=== PATIENT | female | born 1985 | race Hispanic/Latino ===

== ENCOUNTER 2020-11-25 17:55 | Emergency (ER) | payer SELFPAY ==
[2020-11-25] MEDS ORDERED: Azithromycin 250 MG TAB ONE ×2 (19:03→19:08)
[2020-11-25] MEDS ORDERED: cefTRIAXone\\ROCEPHIN 250 MG VIAL ONE ×2 (19:03→19:05)
[2020-11-25 19:23] LABS: Bilirubin Negative (Negative); Blood, Urine 3+ (Negative); Clarity Clear (Clear); Glucose, Urine (Dipstick) Normal (Negative); Ketone, Urine Negative (Negative); Leukocyte 500 Leu/uL (Negative); Nitrite Negative (Negative); Protein, Urine (Dipstick) Negative (Neg-Trace); Specific Gravity, Urine 1.024 (1.002-1.036); Urobilinogen Normal mg/dL (Less than 2); pH, Urine 6.5 (5.0-9.0)
[2020-11-25 19:24] LABS: Bacteria/HPF 1+ HPF (None Seen)
[2020-11-29 21:59] LABS: Chlamydia by PCR DETECTED (NotDetected); GC by PCR DETECTED (NotDetected)
== END 2020-11-25 19:32 | disposition home or self-care (01) ==
LOC: ERS 17:55
DX: N34.2 Other urethritis (principal)
CPT/HCPCS: 81003; 81015; 87077; 87086; 87186; 87480; 87491; 87510; 87591; 87660; 96372; 99283; J0696

== ENCOUNTER 2021-09-06 08:55 | Emergency (ER) | payer SELFPAY ==
[2021-09-06 11:13] LABS: Bacteria/HPF 4+ HPF (None Seen); Bilirubin Negative (Negative); Blood, Urine 2+ (Negative); Clarity Turbid (Clear); Glucose, Urine (Dipstick) Normal (Negative); Ketone, Urine Negative (Negative); Leukocyte 500 Leu/uL (Negative); Nitrite 1+ (Negative); Protein, Urine (Dipstick) 20 mg/dL (Neg-Trace); Specific Gravity, Urine 1.026 (1.002-1.036); Squamous Epithelial 21-50 HPF (0-3); WBC/HPF 21-50 HPF (0-3)
[2021-09-06 11:14] LABS: Pregnancy Test - Urine (BHCG) Negative (Negative); Pregu Control Background? CLEAR/WHITE (CLR/WHITE); Pregu Control Bar Appear? YES (CONTROL BAR); Specific Gravity 1.026 (1.002-1.036)
[2021-09-06] MEDS ORDERED: Lidocaine 1% (PF) 30 ML VIAL ONE (11:33)
[2021-09-06] MEDS ORDERED: cefTRIAXone\\ROCEPHIN 1 GM VIAL ONE (11:33)
== END 2021-09-06 12:03 | disposition short-term general hospital (02) ==
LOC: ERS 08:55
DX: N10 Acute pyelonephritis (principal); F17.210 Nicotine dependence, cigarettes, uncomplicated
CPT/HCPCS: 81003; 81015; 81025; 96372; 99283; J0696; J2001

== ENCOUNTER 2021-09-11 09:37 | Inpatient (IN) | payer SELFPAY ==
[2021-09-11] MEDS ORDERED: Magnevist 469MG/ML 20 ML VIAL ONE (11:05)
[2021-09-11 12:11] VITALS: BMI 34.4
[2021-09-11] MEDS ORDERED: HYDROcodone/Acetaminophen 5/325 mg Tablet PO PRN (12:17)
[2021-09-11 12:57] LABS: #Eosinphils 0.2 thou/uL (0.0-0.7); #Lymphocytes 2.3 thou/uL (1.20-3.40); #Monocytes 0.5 thou/uL (0.11-0.59); #Neutrophils 4.7 thou/uL (1.40-6.50); %Basophils 0.4 % (0.0-1.0); %Eosinophils 2.6 % (0.0-10.0); %Lymphocytes 29.1 % (21.0-51.0); %Monocytes 6.9 % (0.0-10.0); %Neutrophils 61.1 % (42.0-75.0); Mean Corpuscular Hemoglobin 26.3 pg (27.0-31.0); Mean Corpuscular Volume 82.1 fL (78.0-98.0); Mean Platelet Volume 6.2 fL (7.4-10.4); Platelet Count 379 thou/uL (130-400); RBC Distribution Width 14.5 % (11.5-14.5); Red Blood Cell (RBC) Count 3.82 mill/uL (4.20-5.40); White Blood Cell (WBC) Count 7.8 thou/uL (4.8-10.8)
[2021-09-11 13:02] LABS: Anion Gap 11 mmol/L (10-20); BUN (Urea Nitrogen) 11 mg/dL (7.0-18.7); Calc. Creatinine Clearance 157 mL/min (70-130); Calcium 8.7 mg/dL (7.8-10.44); Carbon Dioxide 30 mmol/L (22-29); Chloride 103 mmol/L (98-107); Glucose 106 mg/dL (70-105); Potassium 3.7 mmol/L (3.5-5.1); Sodium 140 mmol/L (136-145)
[2021-09-11] MEDS ORDERED: cefTRIAXone\\ROCEPHIN 2 GM in Sodium Chloride 0.9% 100 ML IVPB SCH (13:15)
[2021-09-11] MEDS: HYDROcodone/Acetaminophen 5/325 mg Tablet PO PRN ×2 (13:35→17:52)
[2021-09-11] MEDS ORDERED: Vancomycin HCl 1.75 GM in Sodium Chloride 0.9% 500 ML IVPB SCH (14:00)
[2021-09-11] MEDS: Ketorolac Tromethamine 30 MG/ML VIAL IVP PRN ×2 (14:05→20:09)
[2021-09-11 14:13] LABS: Syphilis Antibody Nonreactive (Nonreactive); Syphilis Antibody Index 0.06 S/CO (<1.00 Non-Reactive)
[2021-09-11] MEDS: Ondansetron ODT 4 MG TAB PO PRN (14:20)
[2021-09-11 15:18] LABS: HIV (1/2) Antibody/Antigen Non-Reactive (NonReactive); HIV 1/2 INDEX 0.07 S/CO (<1.00); Hep C IgG Ab Non-Reactive (NonReactive); Hep C Index 0.11 S/CO (0-0.79)
[2021-09-11] MEDS ORDERED: Morphine 4 MG/ML VIAL SLOW IVP SCH (20:00)
[2021-09-11] MEDS: Morphine 4 MG/ML VIAL SLOW IVP PRN (20:08)
[2021-09-11] MEDS ORDERED: Vancomycin 1 GM in Premix Bag 1 BAG IVPB SCH (21:00)
[2021-09-11] MEDS: Cefepime 2 GM in Sodium Chloride 0.9% 100 ML IVPB SCH (21:05)
[2021-09-12] MEDS: Morphine 4 MG/ML VIAL SLOW IVP PRN ×4 (00:06→23:03)
[2021-09-12] MEDS: Vancomycin HCl 1.25 GM in Sodium Chloride 0.9% 250 ML 250 ML IVPB SCH ×2 (01:36→17:25)
[2021-09-12] MEDS: HYDROcodone/Acetaminophen 10/325 mg Tablet PO PRN ×5 (01:37→21:01)
[2021-09-12] MEDS: Bisacodyl 5 MG TAB PO PRN ×2 (01:37→11:16)
[2021-09-12] MEDS: Ketorolac Tromethamine 30 MG/ML VIAL IVP PRN ×3 (02:10→13:53)
[2021-09-12 06:43] LABS: #Eosinphils 0.1 thou/uL (0.0-0.7); #Lymphocytes 1.7 thou/uL (1.20-3.40); #Monocytes 0.6 thou/uL (0.11-0.59); #Neutrophils 6.8 thou/uL (1.40-6.50); %Basophils 0.1 % (0.0-1.0); %Eosinophils 1.6 % (0.0-10.0); %Lymphocytes 18.7 % (21.0-51.0); %Monocytes 6.3 % (0.0-10.0); %Neutrophils 73.3 % (42.0-75.0); Hemoglobin 10.4 g/dL (12.0-16.0); Mean Corpuscular HGB CONC 32.4 g/dL (32.0-36.0); Mean Corpuscular Hemoglobin 26.1 pg (27.0-31.0); Mean Corpuscular Volume 80.6 fL (78.0-98.0); Mean Platelet Volume 6.2 fL (7.4-10.4); Platelet Count 408 thou/uL (130-400); RBC Distribution Width 14.3 % (11.5-14.5); White Blood Cell (WBC) Count 9.3 thou/uL (4.8-10.8)
[2021-09-12 06:57] LABS: Anion Gap 13 mmol/L (10-20); BUN (Urea Nitrogen) 8 mg/dL (7.0-18.7); Calc. Creatinine Clearance 163 mL/min (70-130); Calcium 8.7 mg/dL (7.8-10.44); Carbon Dioxide 27 mmol/L (22-29); Chloride 102 mmol/L (98-107); Glucose 93 mg/dL (70-105); Potassium 4.6 mmol/L (3.5-5.1); Sodium 137 mmol/L (136-145)
[2021-09-12] MEDS: Cefepime 2 GM in Sodium Chloride 0.9% 100 ML IVPB SCH ×2 (08:30→21:12)
[2021-09-12] MEDS: Ondansetron PF 4 MG/2 ML Vial IVP PRN ×2 (08:31→21:07)
[2021-09-12] MEDS: Ondansetron ODT 4 MG TAB PO PRN (12:39)
[2021-09-12] MEDS ORDERED: cefTRIAXone\\ROCEPHIN 2 GM in Sodium Chloride 0.9% 100 ML IVPB SCH (13:00)
[2021-09-12] MEDS ORDERED: FLU VACC QS2021-22(6MOS UP)/PF 60 MCG/0.5 ML SYRINGE IM ONE (13:15)
[2021-09-12] MEDS ORDERED: Temazepam 15 MG CAP PO PRN (15:38)
[2021-09-12] MEDS: Ketorolac Tromethamine 30 MG/ML VIAL IVP SCH ×2 (17:23→22:55)
[2021-09-12] MEDS: Lidocaine 5% Patch TD SCH (17:39)
[2021-09-12] MEDS: Cyclobenzaprine 10 MG TAB PO SCH (20:33)
[2021-09-13 01:35] LABS: Vancomycin, Trough 9.8 ug/mL
[2021-09-13] MEDS: Vancomycin HCl 1.25 GM in Sodium Chloride 0.9% 250 ML 250 ML IVPB SCH (02:23)
[2021-09-13] MEDS: Vancomycin HCl 1.75 GM in Sodium Chloride 0.9% 500 ML IVPB SCH ×2 (03:04→15:25)
[2021-09-13] MEDS: Morphine 4 MG/ML VIAL SLOW IVP PRN ×3 (03:53→12:12)
[2021-09-13] MEDS: Ketorolac Tromethamine 30 MG/ML VIAL IVP SCH ×3 (04:36→17:46)
[2021-09-13] MEDS: Transdermal Patch Removal TOP SCH (04:43)
[2021-09-13] MEDS: HYDROcodone/Acetaminophen 10/325 mg Tablet PO PRN ×4 (06:06→20:20)
[2021-09-13 07:30] LABS: #Eosinphils 0.2 thou/uL (0.0-0.7); #Lymphocytes 1.9 thou/uL (1.20-3.40); #Monocytes 0.6 thou/uL (0.11-0.59); #Neutrophils 5.4 thou/uL (1.40-6.50); %Basophils 0.4 % (0.0-1.0); %Eosinophils 2.1 % (0.0-10.0); %Lymphocytes 23.2 % (21.0-51.0); %Monocytes 7.9 % (0.0-10.0); %Neutrophils 66.4 % (42.0-75.0); Hemoglobin 10.6 g/dL (12.0-16.0); Mean Corpuscular Hemoglobin 26.2 pg (27.0-31.0); Mean Corpuscular Volume 79.5 fL (78.0-98.0); Platelet Count 430 thou/uL (130-400); RBC Distribution Width 14.3 % (11.5-14.5); Red Blood Cell (RBC) Count 4.04 mill/uL (4.20-5.40); White Blood Cell (WBC) Count 8.1 thou/uL (4.8-10.8)
[2021-09-13] MEDS: Cyclobenzaprine 10 MG TAB PO SCH ×3 (07:50→20:21)
[2021-09-13] MEDS: Cefepime 2 GM in Sodium Chloride 0.9% 100 ML IVPB SCH ×2 (07:50→20:21)
[2021-09-13] MEDS: Lidocaine 5% Patch TD SCH (07:51)
[2021-09-13] MEDS: Ondansetron PF 4 MG/2 ML Vial IVP PRN ×2 (08:29→20:21)
[2021-09-13] MEDS: Fentanyl 100 MCG/2 ML VIAL SLOW IVP PRN ×2 (14:28→22:25)
[2021-09-14] MEDS: Ketorolac Tromethamine 30 MG/ML VIAL IVP SCH ×4 (00:11→17:47)
[2021-09-14] MEDS: Vancomycin HCl 1.75 GM in Sodium Chloride 0.9% 500 ML IVPB SCH (03:38)
[2021-09-14] MEDS: Ondansetron PF 4 MG/2 ML Vial IVP PRN ×2 (03:38→13:51)
[2021-09-14] MEDS: HYDROcodone/Acetaminophen 10/325 mg Tablet PO PRN ×3 (03:38→20:04)
[2021-09-14] MEDS: Transdermal Patch Removal TOP SCH (04:00)
[2021-09-14 07:39] LABS: #Eosinphils 0.3 thou/uL (0.0-0.7); #Lymphocytes 2.4 thou/uL (1.20-3.40); #Monocytes 0.7 thou/uL (0.11-0.59); #Neutrophils 5.8 thou/uL (1.40-6.50); %Basophils 0.2 % (0.0-1.0); %Eosinophils 2.9 % (0.0-10.0); %Lymphocytes 26.1 % (21.0-51.0); %Monocytes 7.9 % (0.0-10.0); %Neutrophils 62.9 % (42.0-75.0); Hemoglobin 10.7 g/dL (12.0-16.0); Mean Corpuscular HGB CONC 32.5 g/dL (32.0-36.0); Mean Corpuscular Hemoglobin 25.9 pg (27.0-31.0); Mean Corpuscular Volume 79.6 fL (78.0-98.0); Mean Platelet Volume 5.9 fL (7.4-10.4); Platelet Count 463 thou/uL (130-400); RBC Distribution Width 14.3 % (11.5-14.5); Red Blood Cell (RBC) Count 4.15 mill/uL (4.20-5.40); White Blood Cell (WBC) Count 9.1 thou/uL (4.8-10.8)
[2021-09-14] MEDS: Cefepime 2 GM in Sodium Chloride 0.9% 100 ML IVPB SCH (08:28)
[2021-09-14] MEDS: Lidocaine 5% Patch TD SCH (08:28)
[2021-09-14] MEDS: Fentanyl 100 MCG/2 ML VIAL SLOW IVP PRN ×4 (08:28→21:30)
[2021-09-14] MEDS: Cyclobenzaprine 10 MG TAB PO SCH ×3 (10:06→20:04)
[2021-09-14] MEDS: Clindamycin 150 MG CAP PO SCH ×2 (13:52→21:10)
[2021-09-14] MEDS: Bisacodyl 5 MG TAB PO PRN (13:52)
[2021-09-14 15:04] LABS: Vancomycin, Trough 6.1 ug/mL
[2021-09-15] MEDS: Fentanyl 100 MCG/2 ML VIAL SLOW IVP PRN ×4 (04:43→19:40)
[2021-09-15] MEDS: Transdermal Patch Removal TOP SCH (04:43)
[2021-09-15] MEDS: Clindamycin 150 MG CAP PO SCH ×3 (05:39→21:35)
[2021-09-15] MEDS: Ketorolac Tromethamine 30 MG/ML VIAL IVP SCH ×4 (06:01→17:21)
[2021-09-15] MEDS: Bisacodyl 5 MG TAB PO PRN (08:49)
[2021-09-15] MEDS: Lidocaine 5% Patch TD SCH (08:50)
[2021-09-15] MEDS: Cyclobenzaprine 10 MG TAB PO SCH ×3 (08:51→20:06)
[2021-09-15] MEDS: Ondansetron PF 4 MG/2 ML Vial IVP PRN ×2 (08:52→16:04)
[2021-09-15 09:38] LABS: Anion Gap 13 mmol/L (10-20); BUN (Urea Nitrogen) 21 mg/dL (7.0-18.7); Calc. Creatinine Clearance 130 mL/min (70-130); Calcium 9.1 mg/dL (7.8-10.44); Carbon Dioxide 31 mmol/L (22-29); Chloride 97 mmol/L (98-107); Glucose 99 mg/dL (70-105); Potassium 4.4 mmol/L (3.5-5.1); Sodium 137 mmol/L (136-145)
[2021-09-15] MEDS: HYDROcodone/Acetaminophen 10/325 mg Tablet PO PRN ×2 (16:01→21:35)
[2021-09-16] MEDS: Ketorolac Tromethamine 30 MG/ML VIAL IVP SCH ×3 (00:11→11:17)
[2021-09-16] MEDS: Fentanyl 100 MCG/2 ML VIAL SLOW IVP PRN (01:20)
[2021-09-16] MEDS: Clindamycin 150 MG CAP PO SCH (05:33)
[2021-09-16] MEDS: Transdermal Patch Removal TOP SCH (05:33)
[2021-09-16] MEDS: HYDROcodone/Acetaminophen 10/325 mg Tablet PO PRN (07:35)
[2021-09-16] MEDS: Cyclobenzaprine 10 MG TAB PO SCH (09:01)
[2021-09-16] MEDS: Ondansetron PF 4 MG/2 ML Vial IVP PRN (09:06)
[2021-09-16] MEDS: Lidocaine 5% Patch TD SCH (09:06)
[2021-09-16 11:57] VITALS: BP 138/84; TEMP 97.7
== END 2021-09-16 13:11 | disposition home or self-care (01) | DRG 540 ==
LOC: MRI 09:37 → 2NO 12:00 → T4-B 12:09 → UNDOADMIN 12:09 → UNDODISIN 09-16 13:11
PROVIDERS: ADMIT Family Medicine; ATTEND Family Medicine
DX: M46.27 Osteomyelitis of vertebra, lumbosacral region (principal); N39.0 Urinary tract infection, site not specified; M46.47 Discitis, unspecified, lumbosacral region; F15.10 Other stimulant abuse, uncomplicated; B96.20 Unspecified Escherichia coli [E. coli] as the cause of diseases classified elsewhere; F17.210 Nicotine dependence, cigarettes, uncomplicated; Z87.440 Personal history of urinary (tract) infections; Z71.6 Tobacco abuse counseling; Z71.51 Drug abuse counseling and surveillance of drug abuser
CPT/HCPCS: 36415; 72158; 80048; 80202; 85025; 86140; 86780; 86803; 87389; A9579; J0692; J0696; J1885; J2270; J2405; J3010; J3370; J3490; J7030; J7050; Q0162

== ENCOUNTER 2021-10-02 23:42 | Inpatient (IN) | payer SELFPAY ==
[2021-10-03 00:46] VITALS: BMI 28.7
[2021-10-03] MEDS ORDERED: Morphine 4 MG/ML VIAL SLOW IVP SCH (01:30)
[2021-10-03] MEDS ORDERED: HYDROcodone/Acetaminophen 5/325 mg Tablet PO SCH (03:00)
[2021-10-03] MEDS ORDERED: Ketorolac Tromethamine 30 MG/ML VIAL IVP SCH (04:45)
[2021-10-03] MEDS ORDERED: Ondansetron ODT 4 MG TAB PO PRN (04:50)
[2021-10-03] MEDS ORDERED: Acetaminophen 650 MG Suppository PR PRN (04:50)
[2021-10-03] MEDS ORDERED: Ketorolac Tromethamine 30 MG/ML VIAL IVP PRN (04:52)
[2021-10-03] MEDS ORDERED: Piperacillin/Tazobactam 3.375 GM in Sodium Chloride 0.9% 100 ML IVPB SCH ×2 (05:15→09:00)
[2021-10-03] MEDS: Sodium Chloride 0.9% 1,000 ML IV SCH ×2 (05:26→18:16)
[2021-10-03] MEDS: Enoxaparin Sodium 40 MG/0.4 ML SYRINGE SC SCH (07:56)
[2021-10-03] MEDS: Acetaminophen 325 MG TAB PO PRN (07:56)
[2021-10-03] MEDS: Ondansetron PF 4 MG/2 ML Vial IVP PRN ×2 (07:56→16:13)
[2021-10-03] MEDS ORDERED: Vancomycin 1.5 GRAM/300 ML BAG 1.5 GM in Premix Bag 1 BAG IVPB SCH (08:00)
[2021-10-03] MEDS: Vancomycin HCl 750 MG in Sodium Chloride 0.9% 250 ML 250 ML IVPB SCH ×2 (08:13→20:22)
[2021-10-03 08:30] LABS: Anion Gap 14 mmol/L (10-20); BUN (Urea Nitrogen) 12 mg/dL (7.0-18.7); Calc. Creatinine Clearance 122 mL/min (70-130); Calcium 8.3 mg/dL (7.8-10.44); Carbon Dioxide 21 mmol/L (22-29); Chloride 105 mmol/L (98-107); Glucose 107 mg/dL (70-105); Potassium 3.8 mmol/L (3.5-5.1); Sodium 136 mmol/L (136-145)
[2021-10-03 08:31] LABS: Hemoglobin 11.1 g/dL (12.0-16.0); Mean Corpuscular HGB CONC 32.3 g/dL (32.0-36.0); Mean Corpuscular Volume 77.4 fL (78.0-98.0); Mean Platelet Volume 7.8 fL (7.4-10.4); Platelet Count 228 thou/uL (130-400); RBC Distribution Width 14.9 % (11.5-14.5); Red Blood Cell (RBC) Count 4.44 mill/uL (4.20-5.40); White Blood Cell (WBC) Count 6.3 thou/uL (4.8-10.8)
[2021-10-03] MEDS ORDERED: Morphine 4 MG/ML VIAL SLOW IVP PRN (08:41)
[2021-10-03] MEDS ORDERED: FLU VACC QS2021-22(6MOS UP)/PF 60 MCG/0.5 ML SYRINGE IM ONE (09:00)
[2021-10-03] MEDS: Lidocaine 5% Patch TD SCH (09:21)
[2021-10-03] MEDS: Senokot S 8.6-50 MG TAB PO SCH ×2 (09:21→20:20)
[2021-10-03] MEDS: Saccharomyces boulardii 250 MG CAP PO SCH (09:21)
[2021-10-03 10:14] LABS: Eosinophils 5 % (0-10); Lymphocytes 36 % (21-51); MDiff Complete? YES; Microcytosis SLIGHT = 6-15 cells (100X) (0-5/hpf); Monocytes 8 % (0-10); Neutrophil 50 % (42-75); Platelet Morphology Comment Appears Adequate; Polychromasia SLIGHT = 2-3 cells (100X) (0-2/hpf); Reactive Lymphocytes 1 % (0-10)
[2021-10-03] MEDS ORDERED: Heparin 1,000 UNITS/ML VIAL ONE (11:28)
[2021-10-03] MEDS: HYDROcodone/Acetaminophen 10/325 mg Tablet PO PRN ×2 (11:42→20:20)
[2021-10-03] MEDS: Cefepime 2 GM in Sodium Chloride 0.9% 100 ML IVPB SCH (12:41)
[2021-10-03] MEDS: Ketorolac Tromethamine 30 MG/ML VIAL IVP PRN ×2 (16:02→21:20)
[2021-10-03] MEDS: Polyethylene Glycol 3350 17 GM Packet PO SCH (20:22)
[2021-10-03] MEDS: Transdermal Patch Removal TOP SCH (21:48)
[2021-10-04] MEDS: Cefepime 2 GM in Sodium Chloride 0.9% 100 ML IVPB SCH ×2 (01:01→12:14)
[2021-10-04] MEDS: HYDROcodone/Acetaminophen 10/325 mg Tablet PO PRN ×3 (01:50→15:56)
[2021-10-04] MEDS: Ketorolac Tromethamine 30 MG/ML VIAL IVP PRN ×3 (03:18→20:52)
[2021-10-04 06:46] LABS: #Basophils 0.1 thou/uL (0.0-0.2); #Eosinphils 0.2 thou/uL (0.0-0.7); #Monocytes 0.4 thou/uL (0.11-0.59); #Neutrophils 3.3 thou/uL (1.40-6.50); %Basophils 0.9 % (0.0-1.0); %Eosinophils 3.6 % (0.0-10.0); %Lymphocytes 33.7 % (21.0-51.0); %Monocytes 6.7 % (0.0-10.0); %Neutrophils 55.1 % (42.0-75.0); Hemoglobin 11.4 g/dL (12.0-16.0); Mean Corpuscular HGB CONC 32.3 g/dL (32.0-36.0); Mean Corpuscular Hemoglobin 25.4 pg (27.0-31.0); Mean Corpuscular Volume 78.6 fL (78.0-98.0); Mean Platelet Volume 6.5 fL (7.4-10.4); Platelet Count 305 thou/uL (130-400); RBC Distribution Width 14.8 % (11.5-14.5)
[2021-10-04 07:10] LABS: Anion Gap 11 mmol/L (10-20); BUN (Urea Nitrogen) 10 mg/dL (7.0-18.7); Calc. Creatinine Clearance 138 mL/min (70-130); Calcium 8.8 mg/dL (7.8-10.44); Carbon Dioxide 25 mmol/L (22-29); Chloride 104 mmol/L (98-107); Glucose 94 mg/dL (70-105); Potassium 4.3 mmol/L (3.5-5.1); Sodium 136 mmol/L (136-145)
[2021-10-04] MEDS: Morphine 4 MG/ML VIAL SLOW IVP PRN ×2 (07:59→14:06)
[2021-10-04] MEDS: Saccharomyces boulardii 250 MG CAP PO SCH (08:00)
[2021-10-04] MEDS: Senokot S 8.6-50 MG TAB PO SCH ×2 (08:00→20:34)
[2021-10-04] MEDS: Lidocaine 5% Patch TD SCH (08:00)
[2021-10-04] MEDS: Enoxaparin Sodium 40 MG/0.4 ML SYRINGE SC SCH (08:01)
[2021-10-04] MEDS: Vancomycin HCl 750 MG in Sodium Chloride 0.9% 250 ML 250 ML IVPB SCH ×2 (08:01→20:32)
[2021-10-04] MEDS: Sodium Chloride 0.9% 1,000 ML IV SCH ×2 (08:01→15:58)
[2021-10-04] MEDS ORDERED: Gabapentin 300 MG CAP PO SCH (15:30)
[2021-10-04] MEDS ORDERED: Lidocaine 5% Patch TD SCH (15:30)
[2021-10-04 17:26] LABS: BHCG - Serum Negative (NEGATIVE); Pregs Control Background? CLEAR/WHITE (CLR/WHITE); Pregs Control Bar Appear? YES (CONTROL BAR)
[2021-10-04 19:30] LABS: Vancomycin, Trough 3.6 ug/mL
[2021-10-04] MEDS: Gabapentin 300 MG CAP PO SCH (20:32)
[2021-10-04] MEDS: Polyethylene Glycol 3350 17 GM Packet PO SCH (20:32)
[2021-10-04] MEDS: Folic Acid 1 MG TAB PO SCH (20:34)
[2021-10-04] MEDS: Multivit, Therapeutic 1 TAB PO SCH (20:35)
[2021-10-04] MEDS: Cyanocobalamin (Vitamin B-12) 1,000 MCG TAB PO SCH (20:35)
[2021-10-04] MEDS: Transdermal Patch Removal TOP SCH (21:00)
[2021-10-05] MEDS: HYDROcodone/Acetaminophen 10/325 mg Tablet PO PRN ×4 (00:48→23:51)
[2021-10-05] MEDS: Cefepime 2 GM in Sodium Chloride 0.9% 100 ML IVPB SCH ×2 (00:49→12:47)
[2021-10-05] MEDS: Vancomycin 1 GM in Premix Bag 1 BAG IVPB SCH ×3 (02:01→17:07)
[2021-10-05] MEDS: Ketorolac Tromethamine 30 MG/ML VIAL IVP PRN ×3 (03:02→19:37)
[2021-10-05] MEDS: Ondansetron PF 4 MG/2 ML Vial IVP PRN ×3 (03:18→23:57)
[2021-10-05] MEDS: Morphine 4 MG/ML VIAL SLOW IVP PRN ×3 (07:52→21:42)
[2021-10-05] MEDS: Senokot S 8.6-50 MG TAB PO SCH ×2 (07:58→20:50)
[2021-10-05] MEDS: Gabapentin 300 MG CAP PO SCH ×2 (07:58→20:24)
[2021-10-05] MEDS: Saccharomyces boulardii 250 MG CAP PO SCH (07:59)
[2021-10-05] MEDS: Enoxaparin Sodium 40 MG/0.4 ML SYRINGE SC SCH (08:00)
[2021-10-05] MEDS: Lidocaine 5% Patch TD SCH (08:00)
[2021-10-05] MEDS: Cyclobenzaprine 10 MG TAB PO PRN ×3 (08:05→21:42)
[2021-10-05] MEDS: Sodium Chloride 0.9% 1,000 ML IV SCH (12:47)
[2021-10-05] MEDS: Multivit, Therapeutic 1 TAB PO SCH (20:24)
[2021-10-05] MEDS: Cyanocobalamin (Vitamin B-12) 1,000 MCG TAB PO SCH (20:25)
[2021-10-05] MEDS: Folic Acid 1 MG TAB PO SCH (20:25)
[2021-10-05] MEDS: Polyethylene Glycol 3350 17 GM Packet PO SCH (20:49)
[2021-10-05] MEDS: Transdermal Patch Removal TOP SCH (21:52)
[2021-10-06] MEDS: Cefepime 2 GM in Sodium Chloride 0.9% 100 ML IVPB SCH ×2 (00:54→12:52)
[2021-10-06 01:47] LABS: Vancomycin, Trough 12.3 ug/mL
[2021-10-06] MEDS: Ketorolac Tromethamine 30 MG/ML VIAL IVP PRN ×3 (02:07→17:44)
[2021-10-06] MEDS: Vancomycin HCl 1.25 GM in Sodium Chloride 0.9% 250 ML 250 ML IVPB SCH ×3 (02:29→17:44)
[2021-10-06] MEDS: Vancomycin 1 GM in Premix Bag 1 BAG IVPB SCH (02:34)
[2021-10-06] MEDS: Morphine 4 MG/ML VIAL SLOW IVP PRN ×5 (03:14→23:06)
[2021-10-06] MEDS: HYDROcodone/Acetaminophen 10/325 mg Tablet PO PRN ×3 (06:16→21:07)
[2021-10-06 07:34] LABS: #Eosinphils 0.2 thou/uL (0.0-0.7); #Lymphocytes 1.9 thou/uL (1.20-3.40); #Monocytes 0.5 thou/uL (0.11-0.59); #Neutrophils 3.3 thou/uL (1.40-6.50); %Basophils 0.6 % (0.0-1.0); %Eosinophils 3.7 % (0.0-10.0); %Lymphocytes 31.6 % (21.0-51.0); %Monocytes 7.9 % (0.0-10.0); %Neutrophils 56.2 % (42.0-75.0); Hemoglobin 11.1 g/dL (12.0-16.0); Mean Corpuscular HGB CONC 32.3 g/dL (32.0-36.0); Mean Corpuscular Hemoglobin 25.2 pg (27.0-31.0); Mean Corpuscular Volume 77.8 fL (78.0-98.0); Mean Platelet Volume 6.9 fL (7.4-10.4); Platelet Count 272 thou/uL (130-400); RBC Distribution Width 14.7 % (11.5-14.5); Red Blood Cell (RBC) Count 4.39 mill/uL (4.20-5.40); White Blood Cell (WBC) Count 5.9 thou/uL (4.8-10.8)
[2021-10-06 07:50] LABS: Anion Gap 11 mmol/L (10-20); BUN (Urea Nitrogen) 16 mg/dL (7.0-18.7); Calc. Creatinine Clearance 131 mL/min (70-130); Carbon Dioxide 29 mmol/L (22-29); Chloride 102 mmol/L (98-107); Glucose 105 mg/dL (70-105); Potassium 4.1 mmol/L (3.5-5.1); Sodium 138 mmol/L (136-145)
[2021-10-06] MEDS: Enoxaparin Sodium 40 MG/0.4 ML SYRINGE SC SCH (08:22)
[2021-10-06] MEDS: Gabapentin 300 MG CAP PO SCH ×4 (08:23→21:09)
[2021-10-06] MEDS: Senokot S 8.6-50 MG TAB PO SCH ×2 (08:24→21:10)
[2021-10-06] MEDS: Saccharomyces boulardii 250 MG CAP PO SCH (08:24)
[2021-10-06] MEDS: Lidocaine 5% Patch TD SCH (08:40)
[2021-10-06] MEDS: Sodium Chloride 0.9% 1,000 ML IV SCH ×2 (08:41→12:42)
[2021-10-06] MEDS: Cyclobenzaprine 10 MG TAB PO PRN (10:47)
[2021-10-06] MEDS: Ondansetron PF 4 MG/2 ML Vial IVP PRN ×2 (17:40→23:06)
[2021-10-06] MEDS: Cyanocobalamin (Vitamin B-12) 1,000 MCG TAB PO SCH (21:07)
[2021-10-06] MEDS: Multivit, Therapeutic 1 TAB PO SCH (21:07)
[2021-10-06] MEDS: Folic Acid 1 MG TAB PO SCH (21:08)
[2021-10-06] MEDS: Polyethylene Glycol 3350 17 GM Packet PO SCH (21:10)
[2021-10-06] MEDS: Transdermal Patch Removal TOP SCH (21:11)
[2021-10-07] MEDS: Cefepime 2 GM in Sodium Chloride 0.9% 100 ML IVPB SCH ×2 (00:52→11:59)
[2021-10-07 01:16] LABS: Vancomycin, Trough 17.9 ug/mL
[2021-10-07] MEDS: HYDROcodone/Acetaminophen 10/325 mg Tablet PO PRN ×5 (01:32→20:15)
[2021-10-07] MEDS: Ketorolac Tromethamine 30 MG/ML VIAL IVP PRN ×3 (01:35→20:17)
[2021-10-07] MEDS: Vancomycin HCl 1.25 GM in Sodium Chloride 0.9% 250 ML 250 ML IVPB SCH ×3 (03:30→18:03)
[2021-10-07] MEDS: Morphine 4 MG/ML VIAL SLOW IVP PRN ×4 (05:14→22:29)
[2021-10-07] MEDS: Lidocaine 5% Patch TD SCH (09:01)
[2021-10-07] MEDS: Senokot S 8.6-50 MG TAB PO SCH ×3 (09:01→20:47)
[2021-10-07] MEDS: Enoxaparin Sodium 40 MG/0.4 ML SYRINGE SC SCH (09:01)
[2021-10-07] MEDS: Saccharomyces boulardii 250 MG CAP PO SCH (09:01)
[2021-10-07] MEDS: Gabapentin 300 MG CAP PO SCH ×4 (09:02→20:15)
[2021-10-07] MEDS: Ondansetron PF 4 MG/2 ML Vial IVP PRN ×3 (09:06→22:29)
[2021-10-07] MEDS: Sodium Chloride 0.9% 1,000 ML IV SCH (12:00)
[2021-10-07 13:33] LABS: Bacteria/HPF None Seen HPF (None Seen); Bilirubin Negative (Negative); Blood, Urine 1+ (Negative); Clarity Clear (Clear); Glucose, Urine (Dipstick) Normal (Negative); Ketone, Urine Negative (Negative); Leukocyte Negative Leu/uL (Negative); Nitrite Negative (Negative); Protein, Urine (Dipstick) Negative (Neg-Trace); RBC/HPF 0-3 HPF (0-3); Specific Gravity, Urine 1.007 (1.002-1.036); Squamous Epithelial 0-3 HPF (0-3); Urobilinogen Normal mg/dL (Less than 2); WBC/HPF 0-3 HPF (0-3)
[2021-10-07 13:35] LABS: Urine Culture Reflex No No
[2021-10-07] MEDS: Folic Acid 1 MG TAB PO SCH (20:15)
[2021-10-07] MEDS: Cyanocobalamin (Vitamin B-12) 1,000 MCG TAB PO SCH (20:15)
[2021-10-07] MEDS: Multivit, Therapeutic 1 TAB PO SCH (20:15)
[2021-10-07] MEDS: Polyethylene Glycol 3350 17 GM Packet PO SCH (20:18)
[2021-10-07] MEDS: Transdermal Patch Removal TOP SCH (20:21)
[2021-10-08] MEDS: Acetaminophen 325 MG TAB PO PRN ×2 (00:46→07:36)
[2021-10-08] MEDS: Cefepime 2 GM in Sodium Chloride 0.9% 100 ML IVPB SCH ×2 (01:00→11:22)
[2021-10-08 01:34] LABS: Vancomycin, Trough 21.3 ug/mL
[2021-10-08] MEDS: Ketorolac Tromethamine 30 MG/ML VIAL IVP PRN (03:04)
[2021-10-08] MEDS: Vancomycin 1 GM in Premix Bag 1 BAG IVPB SCH ×3 (03:04→16:45)
[2021-10-08] MEDS ORDERED: traMADol HCl 50 MG TAB PO SCH (05:45)
[2021-10-08] MEDS: Ondansetron PF 4 MG/2 ML Vial IVP PRN (05:49)
[2021-10-08] MEDS: Enoxaparin Sodium 40 MG/0.4 ML SYRINGE SC SCH (07:35)
[2021-10-08] MEDS: Senokot S 8.6-50 MG TAB PO SCH ×2 (07:36→19:33)
[2021-10-08] MEDS: Gabapentin 300 MG CAP PO SCH ×4 (07:36→21:06)
[2021-10-08] MEDS: Saccharomyces boulardii 250 MG CAP PO SCH (07:37)
[2021-10-08] MEDS: Lidocaine 5% Patch TD SCH (07:40)
[2021-10-08] MEDS ORDERED: HYDROcodone/Acetaminophen 10/325 mg Tablet PO PRN (08:26)
[2021-10-08] MEDS ORDERED: Morphine 2 MG/ML VIAL SLOW IVP PRN (08:28)
[2021-10-08] MEDS ORDERED: Ketorolac Tromethamine 30 MG/ML VIAL IVP SCH (08:30)
[2021-10-08] MEDS: HYDROcodone/Acetaminophen 10/325 mg Tablet PO PRN ×3 (09:51→21:07)
[2021-10-08] MEDS: Sodium Chloride 0.9% 1,000 ML IV SCH (09:52)
[2021-10-08] MEDS: Ketorolac Tromethamine 30 MG/ML VIAL IVP SCH ×3 (11:22→23:10)
[2021-10-08] MEDS: Acetaminophen/Codeine 30-300mg Tablet PO PRN ×2 (13:03→17:57)
[2021-10-08] MEDS: Morphine 4 MG/ML VIAL SLOW IVP PRN ×3 (15:08→23:33)
[2021-10-08] MEDS: Polyethylene Glycol 3350 17 GM Packet PO SCH (19:33)
[2021-10-08] MEDS: Folic Acid 1 MG TAB PO SCH (21:06)
[2021-10-08] MEDS: Cyanocobalamin (Vitamin B-12) 1,000 MCG TAB PO SCH (21:06)
[2021-10-08] MEDS: Multivit, Therapeutic 1 TAB PO SCH (21:06)
[2021-10-08] MEDS: Transdermal Patch Removal TOP SCH (22:42)
[2021-10-09] MEDS: Acetaminophen/Codeine 30-300mg Tablet PO PRN ×5 (00:50→22:16)
[2021-10-09] MEDS: Cefepime 2 GM in Sodium Chloride 0.9% 100 ML IVPB SCH ×2 (00:52→11:23)
[2021-10-09 01:16] LABS: Vancomycin, Trough 15.3 ug/mL
[2021-10-09] MEDS: Vancomycin 1 GM in Premix Bag 1 BAG IVPB SCH ×3 (02:16→16:13)
[2021-10-09] MEDS: Morphine 4 MG/ML VIAL SLOW IVP PRN ×5 (03:24→20:06)
[2021-10-09] MEDS ORDERED: Lidocaine 5% Patch TD SCH ×2 (05:00→12:00)
[2021-10-09] MEDS: Ketorolac Tromethamine 30 MG/ML VIAL IVP SCH ×2 (05:14→11:15)
[2021-10-09] MEDS: Enoxaparin Sodium 40 MG/0.4 ML SYRINGE SC SCH (07:37)
[2021-10-09] MEDS: Gabapentin 300 MG CAP PO SCH ×4 (07:37→20:05)
[2021-10-09] MEDS: Saccharomyces boulardii 250 MG CAP PO SCH (07:37)
[2021-10-09] MEDS: Senokot S 8.6-50 MG TAB PO SCH ×2 (07:38→20:15)
[2021-10-09] MEDS: Sodium Chloride 0.9% 1,000 ML IV SCH (11:15)
[2021-10-09] MEDS ORDERED: Ibuprofen 800 MG TAB PO SCH (11:45)
[2021-10-09] MEDS: Ondansetron PF 4 MG/2 ML Vial IVP PRN (14:21)
[2021-10-09] MEDS ORDERED: Transdermal Patch Removal TOP SCH ×2 (17:00)
[2021-10-09] MEDS: Ibuprofen 800 MG TAB PO SCH (18:47)
[2021-10-09] MEDS: Cyanocobalamin (Vitamin B-12) 1,000 MCG TAB PO SCH (20:05)
[2021-10-09] MEDS: Folic Acid 1 MG TAB PO SCH (20:05)
[2021-10-09] MEDS: Multivit, Therapeutic 1 TAB PO SCH (20:05)
[2021-10-09] MEDS: Polyethylene Glycol 3350 17 GM Packet PO SCH (20:15)
[2021-10-10] MEDS: Morphine 4 MG/ML VIAL SLOW IVP PRN ×5 (00:06→20:10)
[2021-10-10] MEDS: Acetaminophen 325 MG TAB PO PRN (00:07)
[2021-10-10] MEDS: Cefepime 2 GM in Sodium Chloride 0.9% 100 ML IVPB SCH ×2 (00:08→13:04)
[2021-10-10 01:47] LABS: Vancomycin, Trough 11.1 ug/mL
[2021-10-10] MEDS: Vancomycin 1 GM in Premix Bag 1 BAG IVPB SCH (02:06)
[2021-10-10] MEDS: Vancomycin HCl 1.25 GM in Sodium Chloride 0.9% 250 ML 250 ML IVPB SCH ×3 (02:08→16:49)
[2021-10-10] MEDS: Acetaminophen/Codeine 30-300mg Tablet PO PRN ×5 (02:34→21:57)
[2021-10-10] MEDS: Ondansetron PF 4 MG/2 ML Vial IVP PRN (02:39)
[2021-10-10] MEDS: Ibuprofen 800 MG TAB PO SCH ×3 (04:08→20:12)
[2021-10-10] MEDS: Lidocaine 5% Patch TD SCH (07:04)
[2021-10-10] MEDS: Saccharomyces boulardii 250 MG CAP PO SCH (08:20)
[2021-10-10] MEDS: Enoxaparin Sodium 40 MG/0.4 ML SYRINGE SC SCH (08:20)
[2021-10-10] MEDS: Gabapentin 300 MG CAP PO SCH ×4 (08:20→20:12)
[2021-10-10] MEDS: Senokot S 8.6-50 MG TAB PO SCH ×2 (08:20→20:23)
[2021-10-10] MEDS: Sodium Chloride 0.9% 1,000 ML IV SCH ×2 (10:48→11:06)
[2021-10-10] MEDS ORDERED: Lorazepam 2 MG/ML VIAL SLOW IVP SCH (11:30)
[2021-10-10] MEDS: Transdermal Patch Removal TOP SCH (16:49)
[2021-10-10] MEDS: Cyanocobalamin (Vitamin B-12) 1,000 MCG TAB PO SCH (20:12)
[2021-10-10] MEDS: Multivit, Therapeutic 1 TAB PO SCH (20:12)
[2021-10-10] MEDS: Folic Acid 1 MG TAB PO SCH (20:13)
[2021-10-10] MEDS: Polyethylene Glycol 3350 17 GM Packet PO SCH (20:22)
[2021-10-11] MEDS: Cefepime 2 GM in Sodium Chloride 0.9% 100 ML IVPB SCH ×2 (00:58→13:07)
[2021-10-11] MEDS: Morphine 4 MG/ML VIAL SLOW IVP PRN ×4 (00:58→23:53)
[2021-10-11] MEDS: Ondansetron PF 4 MG/2 ML Vial IVP PRN ×3 (01:14→23:53)
[2021-10-11 01:31] LABS: Vancomycin, Trough 14.1 ug/mL
[2021-10-11] MEDS: Vancomycin HCl 1.25 GM in Sodium Chloride 0.9% 250 ML 250 ML IVPB SCH ×3 (02:45→17:47)
[2021-10-11] MEDS: Lidocaine 5% Patch TD SCH (04:23)
[2021-10-11] MEDS: Acetaminophen/Codeine 30-300mg Tablet PO PRN ×4 (04:25→20:12)
[2021-10-11] MEDS: Ibuprofen 800 MG TAB PO SCH ×3 (04:29→20:36)
[2021-10-11] MEDS: Saccharomyces boulardii 250 MG CAP PO SCH (10:28)
[2021-10-11] MEDS: Gabapentin 300 MG CAP PO SCH ×4 (10:28→20:14)
[2021-10-11] MEDS: Enoxaparin Sodium 40 MG/0.4 ML SYRINGE SC SCH (10:28)
[2021-10-11] MEDS: Senokot S 8.6-50 MG TAB PO SCH ×2 (10:33→20:01)
[2021-10-11] MEDS ORDERED: Fentanyl 100 MCG/2 ML VIAL SLOW IVP SCH (12:00)
[2021-10-11] MEDS ORDERED: ALPRAZolam 0.5 MG TAB PO SCH (12:00)
[2021-10-11] MEDS: Sodium Chloride 0.9% 1,000 ML IV SCH (15:13)
[2021-10-11] MEDS: Transdermal Patch Removal TOP SCH (17:53)
[2021-10-11] MEDS: Polyethylene Glycol 3350 17 GM Packet PO SCH (20:01)
[2021-10-11] MEDS: Multivit, Therapeutic 1 TAB PO SCH (20:15)
[2021-10-11] MEDS: Cyanocobalamin (Vitamin B-12) 1,000 MCG TAB PO SCH (20:15)
[2021-10-11] MEDS: ALPRAZolam 0.5 MG TAB PO SCH (20:16)
[2021-10-11] MEDS: Folic Acid 1 MG TAB PO SCH (20:16)
[2021-10-12] MEDS: Cefepime 2 GM in Sodium Chloride 0.9% 100 ML IVPB SCH ×2 (01:03→13:00)
[2021-10-12] MEDS: Acetaminophen/Codeine 30-300mg Tablet PO PRN ×6 (01:38→23:57)
[2021-10-12 02:13] LABS: Vancomycin, Trough 15.4 ug/mL
[2021-10-12] MEDS: Vancomycin HCl 1.25 GM in Sodium Chloride 0.9% 250 ML 250 ML IVPB SCH ×2 (03:02→10:22)
[2021-10-12] MEDS: Ibuprofen 800 MG TAB PO SCH ×3 (03:47→21:42)
[2021-10-12] MEDS: Morphine 4 MG/ML VIAL SLOW IVP PRN ×5 (03:48→22:45)
[2021-10-12] MEDS: Lidocaine 5% Patch TD SCH ×2 (04:38→09:05)
[2021-10-12] MEDS: Gabapentin 300 MG CAP PO SCH ×4 (07:59→20:07)
[2021-10-12] MEDS: ALPRAZolam 0.5 MG TAB PO SCH ×2 (07:59→20:07)
[2021-10-12] MEDS: Saccharomyces boulardii 250 MG CAP PO SCH (07:59)
[2021-10-12] MEDS: Enoxaparin Sodium 40 MG/0.4 ML SYRINGE SC SCH (08:00)
[2021-10-12] MEDS: Senokot S 8.6-50 MG TAB PO SCH ×2 (08:00→21:45)
[2021-10-12] MEDS: Ondansetron PF 4 MG/2 ML Vial IVP PRN ×2 (13:01→21:13)
[2021-10-12] MEDS: Sodium Chloride 0.9% 1,000 ML IV SCH (13:55)
[2021-10-12] MEDS: DAPTOmycin 500 MG in Sodium Chloride 0.9% 100 ML IVPB SCH (16:43)
[2021-10-12] MEDS: Transdermal Patch Removal TOP SCH (17:47)
[2021-10-12] MEDS: Cyanocobalamin (Vitamin B-12) 1,000 MCG TAB PO SCH (20:05)
[2021-10-12] MEDS: Multivit, Therapeutic 1 TAB PO SCH (20:05)
[2021-10-12] MEDS: Folic Acid 1 MG TAB PO SCH (20:07)
[2021-10-12] MEDS: Polyethylene Glycol 3350 17 GM Packet PO SCH (21:43)
[2021-10-13] MEDS: Cefepime 2 GM in Sodium Chloride 0.9% 100 ML IVPB SCH ×2 (00:43→13:26)
[2021-10-13] MEDS: Morphine 4 MG/ML VIAL SLOW IVP PRN ×6 (02:19→21:33)
[2021-10-13] MEDS: Ibuprofen 800 MG TAB PO SCH ×3 (03:05→20:01)
[2021-10-13] MEDS: Lidocaine 5% Patch TD SCH (04:53)
[2021-10-13] MEDS: Acetaminophen/Codeine 30-300mg Tablet PO PRN ×5 (04:53→21:35)
[2021-10-13] MEDS: ALPRAZolam 0.5 MG TAB PO SCH ×2 (08:50→20:02)
[2021-10-13] MEDS: Senokot S 8.6-50 MG TAB PO SCH ×2 (08:50→20:06)
[2021-10-13] MEDS: Saccharomyces boulardii 250 MG CAP PO SCH (08:51)
[2021-10-13] MEDS: Gabapentin 300 MG CAP PO SCH ×4 (08:51→20:02)
[2021-10-13] MEDS: Enoxaparin Sodium 40 MG/0.4 ML SYRINGE SC SCH (08:52)
[2021-10-13] MEDS: Sodium Chloride 0.9% 1,000 ML IV SCH (08:53)
[2021-10-13] MEDS: Ondansetron PF 4 MG/2 ML Vial IVP PRN ×2 (09:00→14:51)
[2021-10-13] MEDS: DAPTOmycin 500 MG in Sodium Chloride 0.9% 100 ML IVPB SCH (13:30)
[2021-10-13] MEDS: Transdermal Patch Removal TOP SCH (17:30)
[2021-10-13] MEDS: Multivit, Therapeutic 1 TAB PO SCH (20:02)
[2021-10-13] MEDS: Cyanocobalamin (Vitamin B-12) 1,000 MCG TAB PO SCH (20:02)
[2021-10-13] MEDS: Folic Acid 1 MG TAB PO SCH (20:03)
[2021-10-13] MEDS: Polyethylene Glycol 3350 17 GM Packet PO SCH (20:06)
[2021-10-13] MEDS: Acetaminophen 325 MG TAB PO PRN (23:38)
[2021-10-14] MEDS: Morphine 4 MG/ML VIAL SLOW IVP PRN ×6 (01:16→21:49)
[2021-10-14] MEDS: Acetaminophen/Codeine 30-300mg Tablet PO PRN ×3 (02:20→11:15)
[2021-10-14] MEDS: Lidocaine 5% Patch TD SCH (04:31)
[2021-10-14] MEDS: Ibuprofen 800 MG TAB PO SCH ×3 (04:31→20:18)
[2021-10-14 05:39] LABS: #Eosinphils 0.3 thou/uL (0.0-0.7); #Lymphocytes 2.3 thou/uL (1.20-3.40); #Monocytes 0.4 thou/uL (0.11-0.59); #Neutrophils 3.8 thou/uL (1.40-6.50); %Basophils 0.7 % (0.0-1.0); %Eosinophils 4.4 % (0.0-10.0); %Lymphocytes 32.9 % (21.0-51.0); %Monocytes 6.4 % (0.0-10.0); %Neutrophils 55.6 % (42.0-75.0); Hemoglobin 11.6 g/dL (12.0-16.0); Mean Corpuscular HGB CONC 32.9 g/dL (32.0-36.0); Mean Corpuscular Hemoglobin 25.4 pg (27.0-31.0); Mean Corpuscular Volume 77.3 fL (78.0-98.0); Mean Platelet Volume 7.1 fL (7.4-10.4); Platelet Count 243 thou/uL (130-400); RBC Distribution Width 15.1 % (11.5-14.5); Red Blood Cell (RBC) Count 4.57 mill/uL (4.20-5.40); White Blood Cell (WBC) Count 6.9 thou/uL (4.8-10.8)
[2021-10-14] MEDS: cefTRIAXone\\ROCEPHIN 2 GM in Sodium Chloride 0.9% 100 ML IVPB SCH (08:16)
[2021-10-14] MEDS: Saccharomyces boulardii 250 MG CAP PO SCH (08:17)
[2021-10-14] MEDS: Enoxaparin Sodium 40 MG/0.4 ML SYRINGE SC SCH (08:17)
[2021-10-14] MEDS: Gabapentin 300 MG CAP PO SCH ×4 (08:17→20:16)
[2021-10-14] MEDS: ALPRAZolam 0.5 MG TAB PO SCH ×2 (08:17→20:16)
[2021-10-14] MEDS: Senokot S 8.6-50 MG TAB PO SCH ×2 (08:18→20:16)
[2021-10-14] MEDS: Sodium Chloride 0.9% 1,000 ML IV SCH (13:29)
[2021-10-14] MEDS: DAPTOmycin 500 MG in Sodium Chloride 0.9% 100 ML IVPB SCH (14:30)
[2021-10-14] MEDS ORDERED: HYDROcodone/Acetaminophen 10/325 mg Tablet PO PRN (15:04)
[2021-10-14] MEDS: HYDROcodone/Acetaminophen 10/325 mg Tablet PO PRN ×2 (15:48→20:17)
[2021-10-14] MEDS: Transdermal Patch Removal TOP SCH (17:26)
[2021-10-14] MEDS: Multivit, Therapeutic 1 TAB PO SCH (20:17)
[2021-10-14] MEDS: Cyanocobalamin (Vitamin B-12) 1,000 MCG TAB PO SCH (20:17)
[2021-10-14] MEDS: Polyethylene Glycol 3350 17 GM Packet PO SCH (20:18)
[2021-10-14] MEDS: Folic Acid 1 MG TAB PO SCH (20:18)
[2021-10-15] MEDS: HYDROcodone/Acetaminophen 10/325 mg Tablet PO PRN ×5 (00:03→23:06)
[2021-10-15] MEDS: Morphine 4 MG/ML VIAL SLOW IVP PRN ×4 (04:57→20:01)
[2021-10-15] MEDS: Ibuprofen 800 MG TAB PO SCH ×3 (04:58→20:01)
[2021-10-15] MEDS: Lidocaine 5% Patch TD SCH (04:58)
[2021-10-15] MEDS: cefTRIAXone\\ROCEPHIN 2 GM in Sodium Chloride 0.9% 100 ML IVPB SCH (09:11)
[2021-10-15] MEDS: ALPRAZolam 0.5 MG TAB PO SCH ×2 (09:11→20:01)
[2021-10-15] MEDS: Saccharomyces boulardii 250 MG CAP PO SCH (09:11)
[2021-10-15] MEDS: Gabapentin 300 MG CAP PO SCH ×4 (09:11→20:00)
[2021-10-15] MEDS: Senokot S 8.6-50 MG TAB PO SCH ×2 (09:12→20:01)
[2021-10-15] MEDS: Enoxaparin Sodium 40 MG/0.4 ML SYRINGE SC SCH (09:12)
[2021-10-15] MEDS: Sodium Chloride 0.9% 1,000 ML IV SCH (11:45)
[2021-10-15] MEDS: DAPTOmycin 500 MG in Sodium Chloride 0.9% 100 ML IVPB SCH (15:26)
[2021-10-15] MEDS: Transdermal Patch Removal TOP SCH (18:21)
[2021-10-15] MEDS ORDERED: Amlodipine 5 MG TAB PO SCH (19:15)
[2021-10-15] MEDS: Cyanocobalamin (Vitamin B-12) 1,000 MCG TAB PO SCH (20:01)
[2021-10-15] MEDS: Folic Acid 1 MG TAB PO SCH (20:01)
[2021-10-15] MEDS: Multivit, Therapeutic 1 TAB PO SCH (20:01)
[2021-10-15] MEDS: Polyethylene Glycol 3350 17 GM Packet PO SCH (20:12)
[2021-10-16] MEDS: Morphine 4 MG/ML VIAL SLOW IVP PRN ×5 (00:24→20:04)
[2021-10-16] MEDS: HYDROcodone/Acetaminophen 10/325 mg Tablet PO PRN ×2 (01:58→06:01)
[2021-10-16] MEDS: Ibuprofen 800 MG TAB PO SCH ×3 (03:50→20:03)
[2021-10-16] MEDS: Lidocaine 5% Patch TD SCH (06:01)
[2021-10-16] MEDS: ALPRAZolam 0.5 MG TAB PO SCH ×2 (09:22→20:03)
[2021-10-16] MEDS: Amlodipine 5 MG TAB PO SCH (09:22)
[2021-10-16] MEDS: Saccharomyces boulardii 250 MG CAP PO SCH (09:23)
[2021-10-16] MEDS: Gabapentin 300 MG CAP PO SCH ×4 (09:23→20:04)
[2021-10-16] MEDS: Senokot S 8.6-50 MG TAB PO SCH ×2 (09:23→20:03)
[2021-10-16] MEDS: cefTRIAXone\\ROCEPHIN 2 GM in Sodium Chloride 0.9% 100 ML IVPB SCH (09:23)
[2021-10-16] MEDS: Enoxaparin Sodium 40 MG/0.4 ML SYRINGE SC SCH (09:23)
[2021-10-16] MEDS: Morphine IR 10 MG/5 ML UDCUP PO PRN ×3 (11:52→23:24)
[2021-10-16] MEDS: DAPTOmycin 500 MG in Sodium Chloride 0.9% 100 ML IVPB SCH (13:27)
[2021-10-16] MEDS: Transdermal Patch Removal TOP SCH (16:54)
[2021-10-16] MEDS: Folic Acid 1 MG TAB PO SCH (20:03)
[2021-10-16] MEDS: Multivit, Therapeutic 1 TAB PO SCH (20:03)
[2021-10-16] MEDS: Cyanocobalamin (Vitamin B-12) 1,000 MCG TAB PO SCH (20:03)
[2021-10-16] MEDS: Polyethylene Glycol 3350 17 GM Packet PO SCH (20:05)
[2021-10-17] MEDS: Morphine 4 MG/ML VIAL SLOW IVP PRN ×3 (01:19→11:47)
[2021-10-17] MEDS: Morphine IR 10 MG/5 ML UDCUP PO PRN ×3 (03:45→20:14)
[2021-10-17] MEDS: Lidocaine 5% Patch TD SCH (05:26)
[2021-10-17] MEDS: Ibuprofen 800 MG TAB PO SCH ×2 (05:26→11:50)
[2021-10-17] MEDS: cefTRIAXone\\ROCEPHIN 2 GM in Sodium Chloride 0.9% 100 ML IVPB SCH (09:19)
[2021-10-17] MEDS: Enoxaparin Sodium 40 MG/0.4 ML SYRINGE SC SCH (09:19)
[2021-10-17] MEDS: ALPRAZolam 0.5 MG TAB PO SCH ×2 (09:20→20:13)
[2021-10-17] MEDS: Gabapentin 300 MG CAP PO SCH ×4 (09:20→20:13)
[2021-10-17] MEDS: Saccharomyces boulardii 250 MG CAP PO SCH (09:21)
[2021-10-17] MEDS: Amlodipine 5 MG TAB PO SCH (09:21)
[2021-10-17] MEDS: Senokot S 8.6-50 MG TAB PO SCH ×2 (09:22→20:13)
[2021-10-17] MEDS: DAPTOmycin 500 MG in Sodium Chloride 0.9% 100 ML IVPB SCH (13:37)
[2021-10-17] MEDS: Transdermal Patch Removal TOP SCH (17:20)
[2021-10-17] MEDS ORDERED: Ketorolac Tromethamine 10 MG TAB PO PRN (19:00)
[2021-10-17] MEDS: Cyclobenzaprine 10 MG TAB PO PRN (20:12)
[2021-10-17] MEDS: Cyanocobalamin (Vitamin B-12) 1,000 MCG TAB PO SCH (20:13)
[2021-10-17] MEDS: Folic Acid 1 MG TAB PO SCH (20:13)
[2021-10-17] MEDS: Multivit, Therapeutic 1 TAB PO SCH (20:13)
[2021-10-17] MEDS: Polyethylene Glycol 3350 17 GM Packet PO SCH (20:22)
[2021-10-17] MEDS ORDERED: Cyclobenzaprine 10 MG TAB PO SCH (23:42)
[2021-10-18] MEDS: Morphine IR 10 MG/5 ML UDCUP PO PRN ×4 (00:18→15:29)
[2021-10-18] MEDS: Lidocaine 5% Patch TD SCH (05:01)
[2021-10-18] MEDS: Gabapentin 300 MG CAP PO SCH ×4 (09:22→20:04)
[2021-10-18] MEDS: ALPRAZolam 0.5 MG TAB PO SCH ×2 (09:23→20:04)
[2021-10-18] MEDS: Senokot S 8.6-50 MG TAB PO SCH ×2 (09:23→20:04)
[2021-10-18] MEDS: Amlodipine 5 MG TAB PO SCH (09:23)
[2021-10-18] MEDS: cefTRIAXone\\ROCEPHIN 2 GM in Sodium Chloride 0.9% 100 ML IVPB SCH (09:23)
[2021-10-18] MEDS: Saccharomyces boulardii 250 MG CAP PO SCH (09:23)
[2021-10-18] MEDS: Enoxaparin Sodium 40 MG/0.4 ML SYRINGE SC SCH (09:23)
[2021-10-18] MEDS ORDERED: Morphine ER 15 MG TAB PO SCH (10:00)
[2021-10-18] MEDS: Ibuprofen 800 MG TAB PO SCH ×2 (10:13→18:53)
[2021-10-18] MEDS: DAPTOmycin 500 MG in Sodium Chloride 0.9% 100 ML IVPB SCH (14:48)
[2021-10-18] MEDS ORDERED: Morphine IR Tab 15 MG TAB PO SCH (15:45)
[2021-10-18] MEDS: Transdermal Patch Removal TOP SCH (16:36)
[2021-10-18] MEDS: Morphine IR Tab 15 MG TAB PO PRN ×2 (20:01→23:45)
[2021-10-18] MEDS: Cyclobenzaprine 10 MG TAB PO PRN (20:03)
[2021-10-18] MEDS: Folic Acid 1 MG TAB PO SCH (20:04)
[2021-10-18] MEDS: Cyanocobalamin (Vitamin B-12) 1,000 MCG TAB PO SCH (20:05)
[2021-10-18] MEDS: Multivit, Therapeutic 1 TAB PO SCH (20:05)
[2021-10-18] MEDS: Polyethylene Glycol 3350 17 GM Packet PO SCH (20:05)
[2021-10-18] MEDS: Acetaminophen 325 MG TAB PO PRN (23:46)
[2021-10-19] MEDS: Ibuprofen 800 MG TAB PO SCH ×3 (01:45→17:57)
[2021-10-19] MEDS: Morphine IR Tab 15 MG TAB PO PRN ×4 (04:13→16:10)
[2021-10-19] MEDS: Lidocaine 5% Patch TD SCH (04:14)
[2021-10-19] MEDS: Gabapentin 300 MG CAP PO SCH ×4 (07:58→20:30)
[2021-10-19] MEDS: cefTRIAXone\\ROCEPHIN 2 GM in Sodium Chloride 0.9% 100 ML IVPB SCH (07:58)
[2021-10-19] MEDS: Cyclobenzaprine 10 MG TAB PO PRN ×2 (07:59→16:10)
[2021-10-19] MEDS: Saccharomyces boulardii 250 MG CAP PO SCH (07:59)
[2021-10-19] MEDS: Amlodipine 5 MG TAB PO SCH (07:59)
[2021-10-19] MEDS: ALPRAZolam 0.5 MG TAB PO SCH ×2 (07:59→20:29)
[2021-10-19] MEDS: Enoxaparin Sodium 40 MG/0.4 ML SYRINGE SC SCH (08:00)
[2021-10-19] MEDS: Senokot S 8.6-50 MG TAB PO SCH ×2 (08:00→20:19)
[2021-10-19 09:43] LABS: #Basophils 0.1 thou/uL (0.0-0.2); #Eosinphils 0.3 thou/uL (0.0-0.7); #Lymphocytes 2.4 thou/uL (1.20-3.40); #Monocytes 0.5 thou/uL (0.11-0.59); #Neutrophils 2.3 thou/uL (1.40-6.50); %Eosinophils 4.7 % (0.0-10.0); %Lymphocytes 43.8 % (21.0-51.0); %Monocytes 8.1 % (0.0-10.0); %Neutrophils 42.3 % (42.0-75.0); Mean Corpuscular HGB CONC 32.8 g/dL (32.0-36.0); Mean Corpuscular Hemoglobin 25.9 pg (27.0-31.0); Mean Corpuscular Volume 79.1 fL (78.0-98.0); Platelet Count 263 thou/uL (130-400); RBC Distribution Width 15.5 % (11.5-14.5); Red Blood Cell (RBC) Count 4.23 mill/uL (4.20-5.40); White Blood Cell (WBC) Count 5.5 thou/uL (4.8-10.8)
[2021-10-19 10:01] LABS: Anion Gap 13 mmol/L (10-20); BUN (Urea Nitrogen) 17 mg/dL (7.0-18.7); CK (CPK) 65 U/L (29-168); CRP (Inflammatory) 0.86 mg/dL (= or < 0.5); Calc. Creatinine Clearance 126 mL/min (70-130); Calcium 9.3 mg/dL (7.8-10.44); Carbon Dioxide 25 mmol/L (22-29); Chloride 102 mmol/L (98-107); Glucose 96 mg/dL (70-105); Potassium 4.1 mmol/L (3.5-5.1); Sodium 136 mmol/L (136-145)
[2021-10-19] MEDS ORDERED: Morphine ER 15 MG TAB PO SCH (12:45)
[2021-10-19] MEDS: DAPTOmycin 500 MG in Sodium Chloride 0.9% 100 ML IVPB SCH (14:32)
[2021-10-19] MEDS: HYDROcodone/Acetaminophen 5/325 mg Tablet PO PRN ×2 (17:58→22:36)
[2021-10-19] MEDS: Transdermal Patch Removal TOP SCH (18:00)
[2021-10-19] MEDS: Polyethylene Glycol 3350 17 GM Packet PO SCH (20:19)
[2021-10-19] MEDS: Folic Acid 1 MG TAB PO SCH (20:29)
[2021-10-19] MEDS: Multivit, Therapeutic 1 TAB PO SCH (20:29)
[2021-10-19] MEDS: Morphine ER 15 MG TAB PO SCH (20:29)
[2021-10-19] MEDS: Cyanocobalamin (Vitamin B-12) 1,000 MCG TAB PO SCH (20:29)
[2021-10-20] MEDS: Morphine IR Tab 15 MG TAB PO PRN ×3 (00:41→13:42)
[2021-10-20] MEDS: Cyclobenzaprine 10 MG TAB PO PRN (01:54)
[2021-10-20] MEDS: HYDROcodone/Acetaminophen 5/325 mg Tablet PO PRN ×3 (01:55→15:37)
[2021-10-20] MEDS: Ibuprofen 800 MG TAB PO SCH ×2 (01:55→10:26)
[2021-10-20] MEDS: Lidocaine 5% Patch TD SCH (04:47)
[2021-10-20] MEDS: Enoxaparin Sodium 40 MG/0.4 ML SYRINGE SC SCH (08:59)
[2021-10-20] MEDS: cefTRIAXone\\ROCEPHIN 2 GM in Sodium Chloride 0.9% 100 ML IVPB SCH (08:59)
[2021-10-20] MEDS: Senokot S 8.6-50 MG TAB PO SCH (09:00)
[2021-10-20] MEDS: ALPRAZolam 0.5 MG TAB PO SCH (09:00)
[2021-10-20] MEDS: Gabapentin 300 MG CAP PO SCH ×2 (09:00→13:41)
[2021-10-20] MEDS: Amlodipine 5 MG TAB PO SCH (09:01)
[2021-10-20] MEDS: Saccharomyces boulardii 250 MG CAP PO SCH (09:01)
[2021-10-20] MEDS: Morphine ER 15 MG TAB PO SCH (09:04)
[2021-10-20 09:06] VITALS: BP 133/84
[2021-10-20 09:22] VITALS: TEMP 98
[2021-10-20] MEDS: DAPTOmycin 500 MG in Sodium Chloride 0.9% 100 ML IVPB SCH (11:27)
== END 2021-10-20 15:49 | disposition home or self-care (01) | DRG 552 ==
LOC: T4-A 10-03 00:33
PROVIDERS: ADMIT Student in an Organized Health Care Education/Training Program; ATTEND Internal Medicine
PROC: 02HV33Z Insertion of Infusion Device into Superior Vena Cava, Percutaneous Approach (ICD-10-PCS; principal; 2021-10-11)
PROC: B5181ZA Fluoroscopy of Superior Vena Cava using Low Osmolar Contrast, Guidance (ICD-10-PCS; 2021-10-11)
PROC: B548ZZA Ultrasonography of Superior Vena Cava, Guidance (ICD-10-PCS; 2021-10-11)
DX: M46.47 Discitis, unspecified, lumbosacral region (principal); M46.27 Osteomyelitis of vertebra, lumbosacral region; F17.210 Nicotine dependence, cigarettes, uncomplicated; F15.10 Other stimulant abuse, uncomplicated; G89.29 Other chronic pain; M54.17 Radiculopathy, lumbosacral region; D53.9 Nutritional anemia, unspecified; Z87.440 Personal history of urinary (tract) infections; Z71.51 Drug abuse counseling and surveillance of drug abuser
CPT/HCPCS: 36415; 36416; 36569; 72131; 80048; 80202; 81001; 82550; 84703; 85025; 85652; 86140; C1751; J0692; J0696; J0878; J1644; J1650; J1885; J2060; J2270; J2405; J2543; J3010; J3370; J3490; J7050; Q0162